=== PATIENT | male | born 1965 | race Caucasian/White ===

== ENCOUNTER → 2016-12-28 | Outpatient (CLI) | payer OTHER ==
[~2016-12-28] MED LIST: ADVIL200 MG PO; NORCO 325 MG-7.1 TAB PO
== END ==
LOC: COL.RAD 10:00
DX: C76.0 Malignant neoplasm of head, face and neck (principal); C10.9 Malignant neoplasm of oropharynx, unspecified; Z93.0 Tracheostomy status

== ENCOUNTER 2017-02-28 06:19 | Day surgery (SDC) | payer OTHER ==
[2017-02-28] VITALS (8 sets, daily range): BP systolic 91–114; BP diastolic 67–80; PULSE 73–90; TEMP 97.2–97.6
[~2017-02-28] VITALS: Ht 172.7 cm; Wt 50.9 kg
[2017-02-28 08:17] LABS: ALBUMIN 3.2 gm/dL (3.5-5.0); CALCIUM 9.1 mg/dL (8.4-10.2); CREATININE, serum 0.55 mg/dL (0.66-1.25); POTASSIUM 4.3 mmol/L (3.4-5.0)
== END 2017-02-28 11:30 | disposition home or self-care (01) ==
LOC: SDCO 06:19
PROVIDERS: Surgery
DX: C02.1 Malignant neoplasm of border of tongue (principal); R13.10 Dysphagia, unspecified; Z93.0 Tracheostomy status
CPT/HCPCS: J0690; J1644; J2704; J7030